=== PATIENT | male | born 1955 | race Caucasian/White ===

== ENCOUNTER 2020-09-12 11:04 | Inpatient (IN) | payer MEDICARE, SELFPAY ==
--- NOTE | ~2020-09-12 | CT_ITS ---
EXAMINATION: CT chest abdomen pelvis wo con DATE: 09/13/2020 14:03 INDICATION: Abnormal chest radiographs. Shortness of breath. TECHNIQUE: Computed tomography (CT) of the chest, abdomen, and pelvis was performed without intraveno us contrast. Automated exposure control and iterative reconstruction technique were employed. The dos e-length product was 1946.83 mGy-cm. COMPARISON: Chest 2 views 09/13/2020 FINDINGS: CHEST CT: There is a 9.3 x 6.1 cm mass in left lung upper lobe with erosions of the left first, second, and thi rd ribs and T1, T2, and T3 vertebral bodies and left-sided posterior elements. There is a pathologic burst fracture of T2. There is left hilar lymphadenopathy. There is mild atelectasis in the lower lob es. No pleural effusion. The heart size is normal. There are coronary artery calcifications. No peric ardial effusion. There is bilateral gynecomastia. There is a 2.9 cm mass in subareolar left breast. ABDOMEN/PELVIS CT: The liver, spleen, gallbladder, pancreas, adrenal glands, and kidneys are normal. Stool distends the rectum. There is a large volume of stool in the colon. The appendix is normal. The small bowel is nor mal in caliber. There are no pathologically enlarged lymph nodes. There is no free intraperitoneal fl uid. There is moderate lumbar spondylosis. IMPRESSION: 1. Left lung upper lobe mass with chest wall and spine invasion, consistent with primary bronchogenic carcinoma. The spinal involvement raises suspicion for cord compression. Consider thoracic spine MRI without and with contrast. CT-guided biopsy is recommended. 2. Left breast mass, which may be gynecomastia or breast cancer. Ultrasound is recommended. Reviewed, dictated and finalized at location A. D OPERATIONS FARM MANAGER IMPRESSION: 1. Left lung upper lobe mass with chest wall and spine invasion, consistent wit h primary bronchogenic carcinoma. The spinal involvement raises suspicion for c ord compression. Consider thoracic spine MRI without and with contrast. CT-guid ed biopsy is recommended. 2. Left breast mass, which may be gynecomastia or breast cancer. Ultrasound is recommended.
--- NOTE | ~2020-09-12 | XR_ITS ---
EXAMINATION: XR chest 2V EXAM DATE: 09/13/2020 09:43 INDICATION: Left upper thoracic opacification, weakness . TECHNIQUE: Frontal and lateral projections of the chest obtained and reviewed. Comparison is made to prior examination from 09/12/2020. FINDINGS: Patient has scoliosis and also there is some rotation on the examination. There is promine nt superior mediastinal widening, could be ectatic vasculature but difficult to exclude left upper lo be airspace disease. The lungs are otherwise clear. Mild cardiomegaly. No pneumothorax or pleural eff usion. There are bony degenerative changes. IMPRESSION: Persistent opacity over the medial aspect left upper lobe, could be ectatic vasculature but mediastinal mass, goiter, left upper lobe airspace disease not excludable. Consider follow-up [facility] CT. Reviewed, dictated and finalized at location A. MACOGENETICIST IMPRESSION: Persistent opacity over the medial aspect left upper lobe, could b e ectatic vasculature but mediastinal mass, goiter, left upper lobe airspace di sease not excludable. Consider follow-up chest CT.
--- NOTE | ~2020-09-12 | CT_ITS ---
EXAMINATION: CT brain wo con DATE: 09/13/2020 14:02 INDICATION: Altered mental status. COPD. TECHNIQUE: Computed tomography (CT) of the head was performed without intravenous contrast. The dose- length product was 1210.67 mGy-cm. Automated exposure control and iterative reconstruction technique were employed. COMPARISON: None FINDINGS: Mild generalized atrophy. There are scattered mild periventricular and subcortical white ma tter changes, most likely related to small vessel ischemic disease (microangiopathy). Study limited b y motion artifact. No acute intracranial hemorrhage, infarction or mass is identified. No ventriculom egaly or midline shift. Mild mucosal thickening of the right maxillary and sphenoid sinuses. No depre ssed skull fractures. IMPRESSION: 1. No acute intracranial abnormality. Study limited by motion artifact. Reviewed, dictated and finalized at location B. LLATE LAW CLERK
--- NOTE | ~2020-09-12 | XR_ITS ---
XR chest 1V portable 09/12/2020 12:05 Indication: Shortness of breath Procedure: AP portable chest Comparison: No prior studies for comparison. Findings: There are patchy bilateral infiltrates of the right mid and bilateral lower lung zones. The re is soft tissue opacification of the left upper thorax which may be due to external soft tissue. Impression: 1: Patchy bilateral infiltrates may represent atelectasis and/or developing pneumonia. 2: Left upper thoracic opacification, possibly from overlying neck soft tissue. Recommend attention t o this area on subsequent follow-up PA view of the chest when the patient's condition permits. Reviewed, dictated and finalized at location B. MOTIVE ASSEMBLER Impression: 1: Patchy bilateral infiltrates may represent atelectasis and/or developing pne umonia. 2: Left upper thoracic opacification, possibly from overlying neck soft tissue. Recommend attention to this area on subsequent follow-up PA view of the chest when the patient's condition permits.
[2020-09-12 11:03] VITALS: BP 109/67; PULSE 65; RESP 22; TEMP 36.7; O2SAT 95
--- NOTE | 2020-09-12 11:09 | ECG_ITS ---
Measurements Intervals [place] Rate: 60 P: 63 CO: 161 QRS: 4 QRSD: 112 T: 36 QT: 443 QTc: 445 Interpretive Statements SINUS RHYTHM ATRIAL PREMATURE COMPLEX INCOMPLETE LEFT BUNDLE BRANCH BLOCK EARLY PRECORDIAL R/S TRANSITION ST ELEVATION IN DIFFUSE LEADS- PROBABLY EARLY REPOLARIZATION OR PERICARDITIS BASELINE ARTIFACT- I, II, III, AVR, AVL, AVF, V3-V6 ABNORMAL ECG Electronically Signed On 09-12-2020 12:04:29 IMPROVEMENT INTERN by Ángel Rogers D.O.
--- NOTE | 2020-09-12 11:15 | ED.SOB ---
HPI - SOB/Dyspnea General Chief Complaint: Shortness of Breath/Dyspnea Stated Complaint: INCREASED SOB Time Seen by Provider: 09/12/20 11:06 History of Present Illness HPI Narrative: Brought in by EMS from custodial for SOB. He reportedly had a recent chest x-ray concerning for pneumonia. He was started on Levaquin. Today he was feeling SOB and they sent him here, reportedly just to receive a breathing treatment because they do not do them any more. He has never been to this hospital. History limited by poor historian. Related Data Home Medications Medication Instructions Recorded Confirmed Incruse Ellipta 1 puff INHALATION DAILY 09/12/20 09/12/20 albuterol 180 mcg INHALATION Q4-5H PRN 09/12/20 09/12/20 aspirin [Adult Aspirin EC Low 81 mg PO DAILY 09/12/20 09/12/20 Strength] atorvastatin 80 mg PO HS 09/12/20 09/12/20 cetirizine 10 mg PO DAILY 09/12/20 09/12/20 clopidogrel 75 mg PO DAILY 09/12/20 09/12/20 duloxetine 30 mg PO DAILY 09/12/20 09/12/20 febuxostat 40 mg PO DAILY 09/12/20 09/12/20 fluticasone propion-salmeterol 1 inh INHALATION BID 09/12/20 09/12/20 [Advair Diskus] furosemide 40 mg PO DAILY 09/12/20 09/12/20 gabapentin 100 mg PO HS 09/12/20 09/12/20 insulin glargine [Lantus Solostar 60 unit SUBCUT QAM 09/12/20 09/12/20 U-100 Insulin] insulin lispro [Humalog U-100 18 unit SUBCUT QACLUNCH 09/12/20 09/12/20 Insulin] insulin lispro [Humalog U-100 30 unit SUBCUT QPM 09/12/20 09/12/20 Insulin] insulin lispro [Humalog U-100 40 unit SUBCUT QAM 09/12/20 09/12/20 Insulin] metoprolol succinate 100 mg PO DAILY 09/12/20 09/12/20 nitroglycerin 0.4 mg SUBLINGUAL Q5M PRN 09/12/20 09/12/20 ondansetron 4 mg PO Q12H PRN 09/12/20 09/12/20 potassium chloride 10 meq PO DAILY 09/12/20 09/12/20 tramadol 50 mg PO Q6H PRN 09/12/20 09/12/20 Allergies Allergy/AdvReac Type Severity Reaction Status Date / Time allopurinol Allergy Other Verified 09/12/20 11:29 azithromycin [From Zithromax] Allergy Other Verified 09/12/20 11:29 codeine Allergy Other Verified 09/12/20 11:29 NSAIDS (Non-Steroidal Allergy Other Verified 09/12/20 11:29 Anti-Inflamma Review of Systems Review of Systems: ROS unobtainable: Yes unobtainable due to mental status [facility] Past Medical History Medical History (Updated 09/13/20 @ 21:39 by Lenka Manucso PA-C) Chronic kidney disease, stage 3 Chronic obstructive pulmonary disease Congestive heart failure Coronary artery disease Gastroesophageal reflux disease Gout Hyperlipidemia Insulin dependent type 2 diabetes mellitus Osteoarthritis Surgical History Surgical History (Updated 09/12/20 @ 21:26 by Sari Dugan PA-C) Surgical history unknown Family History Family History (Updated 09/12/20 @ 21:26 by Sari Dugan PA-C) Other Unknown family medical history Social History Social History (Updated 09/12/20 @ 21:27 by Sari Dugan PA-C) Social History: The patient is currently staying at a local custodial. His designates his daughter Zamzam and son Lorenzo Shaw as his surrogate decision makers and he wishes to be a full code. He is a former smoker and denies alcohol and illicit substance abuse. 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 Smoking status: Unknown if ever smoked Alcohol intake: unknown Substance use: unknown Living arrangements: custodial Spiritual care concerns: No Comments history limited by poor historian Exam Const: General: alert and ill appearing chronically HENMT: Head: normal to inspection Eyes: Pupils: Equal, round and reactive pupils present Chest: Chest palpation & inspection: no tenderness Resp: Effort & Inspection: tachypneic Auscultation: crackles and rhonchi Cardio: Rate: regular rate Rhythm: regular rhythm GI: GI Palp: Yes Soft to palpation and No Tenderness to palpation present (GI) Skin: General skin exam: normal color Neuro: General: moves all extremities and CN's II-XI intact bilate
[2020-09-12 11:38] LABS: Basophils Percent Auto 0.4 % (0.2-1.2); Eosinophils Absolute Auto 0.2 K/mm3 (0-0.3); Eosinophils Percent Auto 2.9 % (0-4.4); Hematocrit 41.3 % (42.0-52.0); Hemoglobin 13.1 g/dL (14.0-18.0); Immature Granulocyte Absolute 0.03 K/mm3 (0.00-0.031); Immature Granulocyte Percent A 0.4 % (0-0.5); Lymphocytes Absolute Auto 0.98 K/mm3 (0.9-3.2); Lymphocytes Percent Auto 12.2 % (18.3-44.2); Mean Corpuscular HGB Conc 31.7 g/dl (32-36); Mean Corpuscular Hemoglobin 27.3 pg (26-34); Mean Platelet Volume 11.2 fl (7.4-10.4); Monocytes Absolute Auto 0.5 K/mm3 (0.1-0.6); Monocytes Percent Auto 6.5 % (2.6-8.5); Neutrophils Absolute Auto 6.2 K/mm3 (1.3-6.7); Neutrophils Percent Auto 77.6 % (45.5-73.1); Platelet Count Result 190 k/mm3 (150-375); Red Cell Distribution Width 15.9 % (11.5-14.5)
[2020-09-12 11:48] LABS: INR 1.1; Partial Thromboplastin Time 29.1 SECONDS (22.3-36.8); Prothrombin Time 14.7 Seconds (11.1-14.7)
[2020-09-12 11:51] LABS: Anion Gap 6 mmol/L (8-16); Blood Urea Nitrogen 74 mg/dL (9-20); Calcium 13.3 mg/dL (8.4-10.2); Carbon Dioxide 29 mmol/L (22-30); Chloride 106 mmol/L (98-107); Estimated CRCL calculation 27 ml/min; Estimated Glomerular Filt Rate 24; Glucose 178 mg/dL (75-110); Potassium 4.7 mmol/L (3.4-5.0); Sodium 141 mmol/L (137-145)
[2020-09-12 12:03] LABS: NT Pro B Type Natriuretic Pept 836 PG/ML (5-100); Troponin I < 0.012 ng/mL (0.000-0.034)
[2020-09-12 13:29] VITALS: BP 116/64; PULSE 57; RESP 27; O2SAT 94
[2020-09-12 13:58] VITALS: BP 150/112; PULSE 66; RESP 22; O2SAT 99
[2020-09-12 14:00] VITALS: BP 129/76; PULSE 78; RESP 22; O2SAT 99
[2020-09-12 14:19] LABS: Alveolar/Arterial O2 Gradient 81.9 mmHg; Base Excess ABG -0.3 mEq/l (+/-2.0); Fractional Inspired Oxygen 28 %; HCO3 ABG 25.3 mEq/l (22.0-26.0); Oxygen Content ABG 17.5 %vol (16.0-22.0); Oxygen Saturation ABG 91.9 % (95.0-100.0); PCO2 ABG 45.1 mmHg (35.0-45.0); PO2 ABG 64.5 mmHg (80.0-100.0); Site Drawn LEFT RADIAL; pH ABG 7.367 (7.350-7.450)
[2020-09-12 14:20] LABS: Device NASAL CANNULA; Modified Allen's Test Pass
[2020-09-12] MEDS: ACETAMINOPHEN 500 MG TABLET 1000 MG PO (16:20)
--- NOTE | 2020-09-12 17:00 | PM.IMHP ---
H&P: HPI History of Present Illness Date/Time: 09/12/20 17:00 Chief complaint: Shortness of breath. Narrative: Lorenzo Heath Sr. is a 64-year-old male with multiple medical problems including COPD, coronary artery disease, congestive heart failure, chronic kidney disease, and insulin-dependent diabetes who presented to the emergency department earlier today via EMS from a local [facility] for evaluation of shortness of breath. He has not been seen at this facility before and is not the best historian (he seems to be somewhat confused and not entirely cooperative) and as such some of this medical history is obtained via a review of his electronic medical records. I have not been able to locate a phone number for family members for any further information, unfortunately. He gets most of his care at [facility] but is now at a local [facility] for what sounds like rehab although he is not certain how long he has been there. In any regard, he has not been feeling well for several days with decreased appetite, cough, and increasing shortness of breath from baseline. A chest x-ray on 09/10/2020 showed moderate left upper lobe infiltrates for which she was started on Levaquin. This morning he was apparently working with physical therapy and while doing some exercises in the supine position he began complaining of increasing shortness of breath, prompting the trip to the hospital. He reports a loose cough that has not been productive and increasing shortness of breath although he goes on to say that he has been short of breath since 1984. I requested a brain CT and ABG on the patient after seeing him due to confusion and somnolence (he drifted off to sleep a couple of times during the interview). ABG was unremarkable. Unfortunately the brain CT was unable to be done as the patient was not cooperative and complained of increasing shortness of breath and back pain while lying supine. At the time my evaluation he denies fever, chills, sweats, headache, neck ache, cold and flu symptoms, chest pain, pleuritic pain, palpitations, lower extremity edema, calf pain, history of venous thromboembolism, vomiting, diarrhea, and dysuria. No focal weakness or paresthesias. He does not feel that he is confused. Review of Systems Review of Systems: Narrative: Twelve systems were reviewed with pertinent positives and negatives as per HPI. No known exposure to those positive for COVID-19. He denies fever, chills, and sweats. No sinus congestion, rhinorrhea, otalgia, or odynophagia. He denies chest pain pleuritic pain. No palpitations. No focal weakness or paresthesias. He denies auditory and visual changes. His appetite has been poor but he denies vomiting and diarrhea. No dysuria hematuria. He does not know if he has had a decrease in urine output. He apparently is pretty weak and does not ambulate well due to such, which is why he is going through rehab. He has a sacral decubitus ulcer which is being followed by a manager wound. He is not able to tell me whether not he has had surgery and there are no obvious surgical scars on exam. He cannot provide me with family history either. Except as documented, all other systems were reviewed and are negative. [facility] Past Medical History Medical History (Updated 09/12/20 @ 21:38 by Sari Dugan PA-C) Chronic kidney disease, stage 3 Chronic obstructive pulmonary disease Congestive heart failure Coronary artery disease Gastroesophageal reflux disease Gout Hyperlipidemia Insulin dependent type 2 diabetes mellitus Osteoarthritis Surgical History Surgical History (Updated 09/12/20 @ 21:26 by Sari Dugan PA-C) Surgical history unknown Family History Family History (Updated 09/12/20 @ 21:26 by Sari Dugan PA-C) Other Unknown family medical history Social History Social History (Updated 09/12/20 @ 21:27 by Sari Dugan PA-C) Social History: The patient is currently s
[2020-09-12 17:53] VITALS: BP 144/72; PULSE 80; RESP 20; O2SAT 97
--- NOTE | 2020-09-12 20:15 | ADMGEN ---
This patient, Lorenzo Heath Sr., was admitted to [facility] Surg Room 327-01. Patient/family oriented to hospital policies and general routines including ID bracelet, bed and alarms, visiting hours, pain management, procedures, bathroom and other care routines, personal items, smoking policy, room service/diet, and visiting hours. Information on how to activate the Rapid Response Team has been discussed. Patient/Family are encouraged to report perceived risks to care and to ask questions if they do not understand what they are told or what they should do.
[2020-09-12 20:19] VITALS: BP 122/68; PULSE 52; RESP 20; TEMP 36.2; O2SAT 93; BMI 39.6
[2020-09-12] MEDS: LACTATED RINGERS 1,000 ML 125 ML IV CONT (20:44)
[2020-09-12 23:45] LABS: Hemoglobin A1C 7.1 % (<5.7)
[2020-09-12 23:50] LABS: Creatine Kinase 497 U/L (55-170)
[2020-09-12 23:52] LABS: Alanine Aminotransferase 24 U/L (4-50); Alkaline Phosphatase 113 U/L (38-126); Anion Gap 3 mmol/L (8-16); Aspartate Amino Transferase 43 U/L (17-59); Bilirubin,Total 0.5 mg/dL (0.2-1.3); Blood Urea Nitrogen 77 mg/dL (9-20); Carbon Dioxide 29 mmol/L (22-30); Chloride 108 mmol/L (98-107); Estimated CRCL calculation 31 ml/min; Estimated Glomerular Filt Rate 23; Glucose 170 mg/dL (75-110); Magnesium 2.6 mg/dL (1.6-2.3); Phosphorus 5.6 mg/dL (2.5-4.5); Potassium 4.6 mmol/L (3.4-5.0); Sodium 140 mmol/L (137-145)
[2020-09-13] VITALS (13 sets, daily range): BP systolic 108–151; BP diastolic 70–95; PULSE 52–82; RESP 18–22; TEMP 36.2–36.8; O2SAT 90–100
[2020-09-13 00:02] LABS: Troponin I < 0.012 ng/mL (0.000-0.034)
[2020-09-13 00:03] LABS: Parathyroid Intact 9.4 pg/mL (7.5-53.5)
[2020-09-13 01:01] LABS: SARS-CoV-2 RNA PCR Negative
[2020-09-13 02:02] LABS: Vitamin D 25 Hydroxy < 12.8 ng/mL
[2020-09-13 02:15] LABS: Add Urine Microscopic? YES; Appearance Urine Clear (Clear); Bilirubin Urine Negative (Negative); Blood Urine 2+ (Negative); Color Urine Yellow (Yellow); Glucose Urine UA Negative (Negative); Ketones Urine Negative (Negative); Leukocyte Esterase Ur 2+ LEU/UL (Negative); Mucus Urine Moderate /lpf; Nitrate Urine Negative (Negative); Protein Urine Negative (Negative); Specific Grav Ur 1.014 (1.001-1.035); Squamous Epithelial Cell Urine Occasional /hpf (Few); Urobilinogen Urine Negative mg/dL (<2.0); WBC Urine 21-30 /hpf
[2020-09-13] MEDS: ALBUTEROL SULFATE NEB 2.5 MG/0.5 ML INH 5 MG INHALATION ×3 (04:17→14:48)
[2020-09-13] MEDS: IPRATROPIUM BR 0.02% INH SOLN 0.5 MG/2.5 ML VIAL INHALATION ×3 (04:18→14:48)
[2020-09-13] MEDS: LACTATED RINGERS 1,000 ML 125 ML IV CONT (05:12)
[2020-09-13 06:53] LABS: Hematocrit 39.3 % (42.0-52.0); Hemoglobin 12.7 g/dL (14.0-18.0); Mean Corpuscular HGB Conc 32.3 g/dl (32-36); Mean Corpuscular Hemoglobin 27.7 pg (26-34); Mean Corpuscular Volume 85.6 fl (80-100); Mean Platelet Volume 11.6 fl (7.4-10.4); Platelet Count Result 168 k/mm3 (150-375); Red Blood Count 4.59 M/mm3 (4.6-6.20); Red Cell Distribution Width 15.7 % (11.5-14.5); White Blood Count 7.2 K/mm3 (4.5-10.0)
[2020-09-13 07:02] LABS: Alanine Aminotransferase 22 U/L (4-50); Albumin Level 2.9 g/dL (3.5-5.1); Alkaline Phosphatase 111 U/L (38-126); Anion Gap 5 mmol/L (8-16); Aspartate Amino Transferase 43 U/L (17-59); Bilirubin,Total 0.5 mg/dL (0.2-1.3); Blood Urea Nitrogen 74 mg/dL (9-20); Calcium 12.7 mg/dL (8.4-10.2); Carbon Dioxide 28 mmol/L (22-30); Chloride 109 mmol/L (98-107); Estimated CRCL calculation 33 ml/min; Estimated Glomerular Filt Rate 25; Glucose 161 mg/dL (75-110); Magnesium 2.4 mg/dL (1.6-2.3); Potassium 4.3 mmol/L (3.4-5.0); Sodium 142 mmol/L (137-145)
[2020-09-13 08:21] LABS: Glucose Point of Care 161 (65-105)
[2020-09-13] MEDS: FLUTICASONE/SALMETEROL 230-21 MCG INHALER 1 PUFF 2 PUFF INHALATION (09:22)
[2020-09-13] MEDS: CLOPIDOGREL BISULFATE 75 MG TABLET PO (09:51)
[2020-09-13] MEDS: ASPIRIN 81 MG ENTERIC TABLET PO (09:51)
[2020-09-13] MEDS: DULoxetine HCL 30 MG CAPSULE.DR PO (09:52)
[2020-09-13] MEDS: LORATADINE 10 MG TABLET PO (09:52)
[2020-09-13] MEDS: ERGOCALCIFEROL 50,000 UNIT CAPSULE 50000 UNITS PO (09:58)
[2020-09-13] MEDS: METOPROLOL SUCCINATE EXT REL 100 MG TABCR PO (10:00)
[2020-09-13] MEDS: INSULIN GLARGINE (*BKC) 100 UNITS/ML 20 UNITS SUB-Q (11:01)
[2020-09-13 12:43] LABS: Glucose Point of Care 186 (65-105)
[2020-09-13 13:42] LABS: Calcium 12.6 mg/dL (8.4-10.2)
[2020-09-13] MEDS: SODIUM CHLORIDE 0.9% IV 1,000 ML 125 ML IV CONT (14:19)
--- NOTE | 2020-09-13 15:37 | ECG_ITS ---
Measurements Intervals [place] Rate: 76 P: 30 TX: 158 QRS: 52 QRSD: 107 T: 48 QT: 404 QTc: 457 Interpretive Statements SINUS RHYTHM EARLY PRECORDIAL R/S TRANSITION NONSPECIFIC T-WAVE ABNORMALITY- INFERIOR LEADS BASELINE ARTIFACT- I, II, III, AVL, AVF, V3-V6 BORDERLINE ECG Electronically Signed On 09-13-2020 17:24:40 CNC MACHINIST by Ángel Rogers D.O.
[2020-09-13] MEDS: CALCITONIN SALMON INJ 400 UNITS/2 ML VIAL 480 UNITS SUB-Q (16:21)
--- NOTE | 2020-09-13 16:36 | PM.IMPN ---
Progress Note: A&P Assessment and Plan (1) Spinal cord compression: Code(s): G95.20 - Unspecified cord compression Status: Acute Assessment and Plan: There is concern for spinal cord compression from a left upper lobe mass which invades the ribs and thoracic spine. He has evidence of T1, T2, and T3 vertebral body invasion with pathologic T2 burst fracture. Initiate spinal precautions. I have discussed his case with his daughter and Zamzam PEARCE, at length. I discussed my concerns for spinal cord compression given his inability to move his lower extremities. He also has urinary retention and bowel incontinence and I am unsure how long this has been present as he has a sacral ulcer with associated deep tissue injury. STAT MRI thoracic spine was ordered but the patient refused. I tried to order STAT CT thoracic spine but the pt also refused.I discussed these findings with Dr. Morton with pulmonology who recommends IV dexamethasone which was given. I notified his daughter that he refused both studies but that I do have concern for cord compression and recommend neurosurgical evaluation. She would like to have neurosurgical evaluation which is not offered at our facility. She is unsure if she will want to proceed with intervention but would like for him to be evaluated. I called and discussed his case with Dr. Hein, neurosurgeon head of acquisitions at [facility]. He has been accepted for transfer to [facility] for neurosurgical evaluation. (2) Acute metabolic encephalopathy: Code(s): G93.41 - Metabolic encephalopathy Status: Acute Assessment and Plan: Etiology unclear. This may be due to hypercalcemia secondary to large left lung mass with concern for primary bronchogenic carcinoma. Urinalysis is suspicious for UTI and he is on IV ceftriaxone. BUN is markedly elevated as well at 74, Cr 2.6. CT brain wo contrast was negative for acute pathology. He is afebrile. Continue to monitor closely. (3) Lung mass: Code(s): R91.8 - Other nonspecific abnormal finding of lung field Status: Acute Assessment and Plan: The patient's daughter reported that the pt was aware of a lung mass on CXR for approximately 1 year but the pt refused further evaluation with CT scan. CT chest was ordered given concern for mass on CXR and demonstrates a 9.3x6.1cm mass in the left upper lobe with erosion of the left first, second, and third ribs and T1, T2, and T3 vertebral bodies and left hilar lymphadenopathy. The mass is suspicious for primary bronchogenic carcinoma. ` (4) Hypercalcemia: Code(s): E83.52 - Hypercalcemia Status: Acute Assessment and Plan: I have no prior labs for review. This is likely due to malignancy given finding of 9.3x6.1cm left upper lung mass suspicious for primary bronchogenic carcinoma. PTH is normal. PTH related protein pending. TSH normal. Vitamin D 25-hydroxy is low. He is somnolent and I am concerned that hypercalcemia may be causing confusion. Discussed with nephrology and will give calcitonin as bisphosphonates are contraindicated given his renal insufficiency. Continue to monitor closely. (5) Acute kidney injury superimposed on chronic kidney disease: Code(s): N17.9 - Acute kidney failure, unspecified; N18.9 - Chronic kidney disease, unspecified Status: Acute Assessment and Plan: Possibly post-renal as pt had urinary retention with 1,600ml return after jhaveri placement vs pre-renal or a combination. The patient's daughter reports that Cr varies from 1.4 up to 5-6 on review of labs. I do not have labs available for review at this time. Continue gentle IV fluids. Avoid nephrotoxins and renally dose medications. (6) Insulin dependent type 2 diabetes mellitus: Code(s): E11.9 - Type 2 diabetes mellitus without complications; Z79.4 - [facility] (current) use of insulin Status: Chronic Assessment and Plan: Blood sugars are reasonably controlled with the exc
--- NOTE | 2020-09-13 18:48 | PC.NURSE ---
Refused complete meal by nurse and tech both making attempts to feed. Holding insulin.
[2020-09-13 18:49] LABS: Glucose Point of Care 230 (65-105)
--- NOTE | 2020-09-13 20:19 | PC.NURSE ---
Patient had MRI scheduled and refused, DORI Lopez called and ordered a CT thor/spine and patient refused as well; not wanting to lay flat, does not tolerate well. Blood sugar 213 and patient refused to eat, so held and Lenka Reed aware.
[2020-09-13] MEDS: GABAPENTIN 100 MG CAPSULE PO (20:50)
[2020-09-13] MEDS: DOCUSATE SODIUM 100 MG CAPSULE PO (20:50)
--- NOTE | 2020-09-13 21:35 | PM.TDS ---
Transfer Discharge Sum: Prov Provider Date of admission: 09/12/20 17:12 Primary care physician: Everette Rodriguez, MD Admitting clinician: Marcia Delarosa MD Consults: 09/12/20 Wound/ET Consult Routine Reason for Consult:: Wound on coccyx 09/13/20 Consult to Physician Routine Comment: Consulting Provider: Mik Hays faculty i on call medical assistant/MD group to consult: Nephrology Reason for consultation: Hypercalcemia, renal insufficiency, confusion Has provider been notified: Yes Consult to Physician Routine Comment: consulted at 1545 (md,) Consulting Provider: Fransisco Morton faculty i on call medical assistant/MD group to consult: Pulmonology 9.3 x 6.1 cm mass in left lung upper lobe with erosions of the left first, second, and third ribs and T1, T2, and T3 vertebral bodies and left-sided posterior elements Reason for consultation: 9.3x6.1cm mass left upper lung w concern for primary bronchogenic carcinoma Has provider been notified: Yes DS: Admitting Diagnosis Admitting Diagnosis Admitting Diagnosis: Shortness of breath. DS: Discharge Diagnosis Discharge Diagnosis (1) Spinal cord compression: Code(s): G95.20 - Unspecified cord compression Status: Acute Assessment and Plan: There is concern for spinal cord compression from a left upper lobe mass which invades the ribs and thoracic spine. He has evidence of T1, T2, and T3 vertebral body invasion with pathologic T2 burst fracture. Initiate spinal precautions. I have discussed his case with his daughter and Zamzam PEARCE, at length. I discussed my concerns for spinal cord compression given his inability to move his lower extremities. He has had lower extremity weakness since 09/04 per the daughter. He also has urinary retention and bowel incontinence and I am unsure how long this has been present as he has a sacral ulcer with associated deep tissue injury. STAT MRI thoracic spine was ordered but the patient refused. I tried to order STAT CT thoracic spine but the pt also refused. I notified his daughter that he refused both studies but that I do have concern for cord compression and recommend neurosurgical evaluation. She would like to have neurosurgical evaluation which is not offered at our facility. She is unsure if she will want to proceed with intervention but would like for him to be evaluated. I called and discussed his case with Dr. Hein, neurosurgeon pupil personnel worker at [facility]. He has been accepted for transfer to [facility] for neurosurgical evaluation. (2) Acute metabolic encephalopathy: Code(s): G93.41 - Metabolic encephalopathy Status: Acute Assessment and Plan: Etiology unclear. This may be due to hypercalcemia secondary to large left lung mass with concern for primary bronchogenic carcinoma. Urinalysis is suspicious for UTI and he is on IV ceftriaxone. BUN is markedly elevated as well at 74, Cr 2.6. CT brain wo contrast was negative for acute pathology. He is afebrile. Continue to monitor closely. (3) Lung mass: Code(s): R91.8 - Other nonspecific abnormal finding of lung field Status: Acute Assessment and Plan: The patient's daughter reported that the pt was aware of a lung mass on CXR for approximately 1 year but the pt refused further evaluation with CT scan. CT chest was ordered given concern for mass on CXR and demonstrates a 9.3x6.1cm mass in the left upper lobe with erosion of the left first, second, and third ribs and T1, T2, and T3 vertebral bodies and left hilar lymphadenopathy. The mass is suspicious for primary bronchogenic carcinoma. ` (4) Hypercalcemia: Code(s): E83.52 - Hypercalcemia Status: Acute Assessment and Plan: I have no prior labs for review. This is likely due to malignancy given finding of 9.3x6.1cm left upper lung mass suspicious for primary bronchogenic carcinoma. PTH is normal. PTH related pro
[2020-09-13] MEDS: SODIUM CHLORIDE 0.9% IV 1,000 ML 100 ML IV CONT (22:36)
[2020-09-13] MEDS: HEPARIN SODIUM 5,000 UNITS/ML VIAL 5000 UNITS SUB-Q (22:49)
[2020-09-15 22:51] LABS: Vitamin D 1,25 (OH)2 Total 10 pg/mL (18-72); Vitamin D2 1,25 (OH)2 <8 pg/mL; Vitamin D3 1,25 (OH)2 10 pg/mL
[2020-09-16 06:10] LABS: Ionized Calcium 7.4 mg/dL (4.8-5.6)
[2020-09-17 06:08] LABS: Abnormal Protein Band 1 0.5 g/dL; Albumin 2.2 g/dL (3.8-4.8); Alpha 1 Globulin 0.6 g/dL (0.2-0.3); Alpha 2 Globulin 0.9 g/dL (0.5-0.9); Beta 1 Globulin 0.5 g/dL (0.4-0.6); Gamma Globulin 1.7 g/dL (0.8-1.7); Protein, Total 6.5 g/dL (6.1-8.1)
== END 2020-09-14 00:25 | disposition short-term general hospital (02) | DRG 91 ==
LOC: ANHED 17:05 → ANH3MEDSUR 21:24
PROVIDERS: Physician Assistant; Admitting Provider Family Medicine; Emergency Provider Emergency Medicine; PCP Internal Medicine; Visit Provider Physician Assistant
DX: G95.29 Other cord compression (principal); G93.41 Metabolic encephalopathy; N17.9 Acute kidney failure, unspecified; N39.0 Urinary tract infection, site not specified; M84.48XA Pathological fracture, other site, initial encounter for fracture; Z20.828 Contact with and (suspected) exposure to other viral communicable diseases; R91.8 Other nonspecific abnormal finding of lung field; E83.52 Hypercalcemia; E11.22 Type 2 diabetes mellitus with diabetic chronic kidney disease; N18.30 Chronic kidney disease, stage 3 unspecified; I50.9 Heart failure, unspecified; J44.9 Chronic obstructive pulmonary disease, unspecified; I25.10 Atherosclerotic heart disease of native coronary artery without angina pectoris; R33.9 Retention of urine, unspecified; N31.8 Other neuromuscular dysfunction of bladder; M1A.9XX0 Chronic gout, unspecified, without tophus (tophi); L89.156 Pressure-induced deep tissue damage of sacral region; E86.0 Dehydration; N63.20 Unspecified lump in the left breast, unspecified quadrant; M19.90 Unspecified osteoarthritis, unspecified site; Z79.4 Long term (current) use of insulin; Z87.891 Personal history of nicotine dependence; E66.9 Obesity, unspecified; Z68.39 Body mass index [BMI] 39.0-39.9, adult
CPT/HCPCS: 36415; 36600; 70450; 71045; 71046; 71250; 74176; 80048; 80053; 81001; 82306; 82310; 82330; 82550; 82652; 82805; 83036; 83519; 83735; 83880; 83970; 84100; 84155; 84165; 84443; 84484; 85025; 85027; 85610; 85730; 86334; 87040; 87086; 87635; 93005; 94640; 99285; A9270; C9803; J0630; J0696; J1100; J1644; J1815; J1956; J7030; J7120; U0003